=== PATIENT | male | born 1960 | race Two or more races ===

== ENCOUNTER 2023-11-07 10:37 | Inpatient (IN) | payer OTHER ==
[~2023-11-07] VITALS: Ht 185.4 cm; Wt 98.4 kg
[2023-11-07 11:28] LABS: Basophils # (auto) 0 10 ^3/uL (0-0.2); Basophils % (auto) 0.6 % (0.0-2.0); Eosinophils # (auto) 0.2 10 ^3/uL (0-0.8); Eosinophils % (auto) 3.8 % (0.0-7.0); Hematocrit 40.4 % (41.0-53.0); Hemoglobin 13.8 g/dL (13.5-17.5); Lymphocytes # (auto) 1.7 10 ^3/uL (0.4-5.4); Lymphocytes % (auto) 28.7 % (10.0-50.0); Mean Corpuscular Hgb Conc. 34.1 g/dL (32.0-36.0); Monocytes # (auto) 0.5 10 ^3/uL (0-1.3); Monocytes % (auto) 8.1 % (0.0-12.0); Neutrophils # (auto) 3.5 10 ^3/uL (1.6-8.6); Neutrophils % (auto) 58.8 % (37.0-80.0); Red Blood Cells 4.44 10^6/uL (4.5-5.90); Red Cell Distribution Width 15.1 % (11.8-14.3)
[2023-11-07 11:43] LABS: INR 0.99 (0.9-1.15); Partial Thromboplastin Time 27.2 SEC (24.5-34.5); Prothrombin Time 10.5 sec (9.3-11.8)
[2023-11-07 11:47] LABS: Alanine Aminotransferase 19 U/L (7-40); Albumin 4.4 g/dL (3.2-4.8); Alkaline Phosphatase 58 U/L (46-116); Anion Gap 5 (5-15); Aspartate Aminotransferase 18 U/L (13-40); BUN/Creatinine Ratio 9.6 (10.0-20.0); Bilirubin, Total 1.7 mg/dL (0.2-1.0); Blood Urea Nitrogen 11 mg/dL (9-23); Calcium 9.2 mg/dL (8.7-10.4); Carbon Dioxide 29 mmol/L (20-30); Chloride 108 mmol/L (98-107); Glucose 87 mg/dL (74-106); Potassium 3.4 mmol/L (3.5-5.1); Sodium 142 mmol/L (136-145); Total Protein 7.3 g/dL (5.7-8.2)
[2023-11-07] MEDS: hydrALAZINE HCL 20 MG/ML VL IV ONE (12:29)
[2023-11-07 12:30] VITALS: PULSE 62; RESP 19; O2SAT 96
[2023-11-07] MEDS: PIPERACILLIN-TAZO 4.5GM 100 ML IV ONE (13:03)
[2023-11-07] MEDS: POTASSIUM CHL 20 Meq TABLET PO ONE (13:03)
[2023-11-07 13:08] LABS: Urine Bacteria None Seen /hpf (None Seen)
[2023-11-07 13:19] LABS: Urine Blood Negative /uL (Negative); Urine Clarity Clear (Clear); Urine Color Yellow (Yellow); Urine Mucus FEW (None Seen); Urine Protein, UAD TRACE (Negative); Urine Specific Gravity 1.023 (1.001-1.035); Urine Urobilinogen 2 mg/dL (Negative); Urine WBC 1 /hpf (0 - 3)
[2023-11-07] MEDS ORDERED: NITROGLYCERIN 0.4 MG SL TAB SL PRN (13:45)
[2023-11-07] MEDS ORDERED: SODIUM CHLORIDE 0.9% 1,000 ML IV SCH (14:45)
[2023-11-07] MEDS ORDERED: MORPHINE SULFATE INJ 2 MG/ml SYRG IV PRN (14:45)
[2023-11-07] MEDS: POTASSIUM EFFERVESENT TAB 25 MEQ PO ONE (14:45)
[2023-11-07] MEDS ORDERED: ASPirin 81 mg TAB PO ONE (15:00)
[2023-11-07 15:15] LABS: Magnesium 2.1 mg/dL (1.6-2.6)
[2023-11-07 15:16] LABS: Phosphorus 2.5 mg/dL (2.4-5.1)
[2023-11-07] MEDS: LOSARTAN POTASSIUM 25 MG TAB PO ONE (16:10)
[2023-11-07] MEDS: hydroCHLOROthiazide 25 MG TAB PO ONE (16:10)
[2023-11-07] MEDS: DOCUSATE SOD 100 MG CAP PO PRN (16:11)
[2023-11-07] MEDS: ONDANSETRON HCL 4 MG/2 ML VIAL IV PRN (16:11)
[2023-11-07] MEDS: PANTOPRAZOLE 40 MG/10 ML VIAL INJ IV ONE (16:27)
[2023-11-07] MEDS: PIPERACILLIN-TAZOB 3.375GM 100 ML IV ONE (17:19)
[2023-11-07] MEDS: PIPERACILLIN-TAZOB 3.375GM 100 ML IV SCH (18:38)
[2023-11-07 19:20] VITALS: PULSE 60; RESP 18; O2SAT 99
[2023-11-07] MEDS: SODIUM CHLORIDE 0.9% 1,000 ML IV SCH (20:25)
[2023-11-07 22:19] LABS: Hematocrit 41.2 % (41.0-53.0); Hemoglobin 14.1 g/dL (13.5-17.5)
[2023-11-07 23:30] VITALS: PULSE 60
[2023-11-08] VITALS (9 sets, daily range): BP systolic 142–165; BP diastolic 92–103; PULSE 60–91; RESP 16–18; TEMP 98–98.7; O2SAT 94–99
[2023-11-08] MEDS: MORPHINE SULFATE INJ 2 MG/ml SYRG IV PRN (00:31)
[2023-11-08] MEDS ORDERED: LOSA-534 PO (01:50)
[2023-11-08] MEDS ORDERED: ATOR-47 PO (01:51)
[2023-11-08 06:56] LABS: Basophils # (auto) 0 10 ^3/uL (0-0.2); Basophils % (auto) 0.7 % (0.0-2.0); Eosinophils # (auto) 0.3 10 ^3/uL (0-0.8); Eosinophils % (auto) 4.2 % (0.0-7.0); Hematocrit 40.4 % (41.0-53.0); Hemoglobin 13.8 g/dL (13.5-17.5); Lymphocytes # (auto) 2.3 10 ^3/uL (0.4-5.4); Lymphocytes % (auto) 32.4 % (10.0-50.0); Mean Corpuscular Hemoglobin 30.9 pg (28.0-32.0); Mean Corpuscular Hgb Conc. 34.2 g/dL (32.0-36.0); Mean Corpuscular Volume 90.4 fL (80.0-100.0); Monocytes # (auto) 0.5 10 ^3/uL (0-1.3); Monocytes % (auto) 7.1 % (0.0-12.0); Neutrophils # (auto) 3.9 10 ^3/uL (1.6-8.6); Neutrophils % (auto) 55.6 % (37.0-80.0); Nucleated Red Blood Cells % 0.1 %; Red Blood Cells 4.47 10^6/uL (4.5-5.90); Red Cell Distribution Width 15.4 % (11.8-14.3)
[2023-11-08 07:28] LABS: Alanine Aminotransferase 15 U/L (7-40); Alkaline Phosphatase 58 U/L (46-116); Anion Gap 9 (5-15); BUN/Creatinine Ratio 6.4 (10.0-20.0); Blood Urea Nitrogen 7 mg/dL (9-23); Calcium 9.5 mg/dL (8.7-10.4); Carbon Dioxide 26 mmol/L (20-30); Chloride 107 mmol/L (98-107); Glucose 71 mg/dL (74-106); Sodium 142 mmol/L (136-145)
[2023-11-08 07:29] LABS: Albumin 4.4 g/dL (3.2-4.8); Aspartate Aminotransferase 10 U/L (13-40); Bilirubin, Total 2.4 mg/dL (0.2-1.0); Total Protein 7.3 g/dL (5.7-8.2)
[2023-11-08 08:44] LABS: Hepatitis B Surface Antigen Negative (Negative)
[2023-11-08 09:06] LABS: Hepatitis C Antibody Negative (Negative)
[2023-11-08] MEDS: PANTOPRAZOLE 40 MG/10 ML VIAL INJ IV SCH (09:53)
[2023-11-08] MEDS: POTASSIUM CHL 20 Meq TABLET PO ONE (09:54)
[2023-11-08] MEDS ORDERED: LOSARTAN POTASSIUM 25 MG TAB PO SCH (10:00)
[2023-11-08] MEDS ORDERED: ASPirin 81 mg TAB PO SCH (10:00)
[2023-11-08 11:41] LABS: Hematocrit 41.6 % (41.0-53.0); Hemoglobin 14.3 g/dL (13.5-17.5)
[2023-11-08] MEDS: PIPERACILLIN-TAZOB 3.375GM 100 ML IV SCH (17:19)
[2023-11-08] MEDS: hydrALAZINE HCL 20 MG/ML VL IV PRN (17:19)
[2023-11-08] MEDS ORDERED: HYDROCORTISONE 2.5% TOPICAL CREAM 30GM TUBE PR PRN (18:00)
[2023-11-08] MEDS ORDERED: LIDOCAINE HCL 5 % TOP OINT 35 GM TOP PRN (18:00)
[2023-11-08] MEDS: DOCUSATE SOD 100 MG CAP PO SCH (21:27)
[2023-11-08 22:15] LABS: Hematocrit 41.3 % (41.0-53.0); Hemoglobin 14.1 g/dL (13.5-17.5)
[2023-11-09 01:00] VITALS: BP 156/84; PULSE 80; RESP 18; TEMP 98; O2SAT 96
[2023-11-09 05:00] VITALS: BP 130/74; PULSE 67; RESP 18; TEMP 97.8; O2SAT 98
[2023-11-09 06:15] LABS: Basophils # (auto) 0 10 ^3/uL (0-0.2); Basophils % (auto) 0.5 % (0.0-2.0); Eosinophils # (auto) 0.2 10 ^3/uL (0-0.8); Eosinophils % (auto) 2.7 % (0.0-7.0); Hematocrit 39.3 % (41.0-53.0); Hemoglobin 13.4 g/dL (13.5-17.5); Lymphocytes # (auto) 1.5 10 ^3/uL (0.4-5.4); Lymphocytes % (auto) 16.4 % (10.0-50.0); Mean Corpuscular Hemoglobin 31.2 pg (28.0-32.0); Mean Corpuscular Hgb Conc. 34.2 g/dL (32.0-36.0); Mean Corpuscular Volume 91.1 fL (80.0-100.0); Monocytes # (auto) 0.7 10 ^3/uL (0-1.3); Monocytes % (auto) 7.1 % (0.0-12.0); Neutrophils # (auto) 6.8 10 ^3/uL (1.6-8.6); Neutrophils % (auto) 73.3 % (37.0-80.0); Nucleated Red Blood Cells % 0.1 %; Red Blood Cells 4.31 10^6/uL (4.5-5.90); Red Cell Distribution Width 15.8 % (11.8-14.3); White Blood Cell 9.3 10^3/uL (4.4-10.8)
[2023-11-09 06:33] LABS: Alanine Aminotransferase 15 U/L (7-40); Albumin 3.9 g/dL (3.2-4.8); Alkaline Phosphatase 51 U/L (46-116); Anion Gap 8 (5-15); Aspartate Aminotransferase 8 U/L (13-40); BUN/Creatinine Ratio 4.3 (10.0-20.0); Blood Urea Nitrogen 5 mg/dL (9-23); Calcium 9.1 mg/dL (8.7-10.4); Carbon Dioxide 25 mmol/L (20-30); Chloride 109 mmol/L (98-107); Glucose 152 mg/dL (74-106); Potassium 3.2 mmol/L (3.5-5.1); Sodium 142 mmol/L (136-145)
[2023-11-09 06:34] LABS: Bilirubin, Total 2.5 mg/dL (0.2-1.0); Total Protein 6.7 g/dL (5.7-8.2)
[2023-11-09 08:00] VITALS: PULSE 77
[2023-11-09 08:44] VITALS: BP 165/92; PULSE 70; RESP 18; TEMP 98.1; O2SAT 96
[2023-11-09] MEDS: LOSARTAN POTASSIUM 50 MG TAB PO SCH (08:47)
[2023-11-09] MEDS: hydroCHLOROthiazide 25 MG TAB PO SCH (08:48)
[2023-11-09] MEDS: POTASSIUM CHL 20 Meq TABLET PO ONE ×2 (08:49→14:38)
[2023-11-09] MEDS ORDERED: HYDR25TA5 PO (12:11)
[2023-11-09] MEDS ORDERED: LOSA-534 PO (12:11)
[2023-11-09] MEDS ORDERED: CIPR-173 PO (12:12)
[2023-11-09] MEDS ORDERED: METR-344 PO (12:12)
[2023-11-09 13:14] VITALS: BP 134/85; PULSE 74; RESP 16; TEMP 98.3; O2SAT 100
[2023-11-10] MEDS ORDERED: LOSARTAN POTASSIUM 50 MG TAB PO SCH (10:00)
== END 2023-11-09 16:23 | disposition home or self-care (01) | DRG 78 ==
LOC: ER 10:37 → TELE-WESTW 13:34 → TELE 13:34 → TELE-WESTW 23:17 → WEST WING 11-09 07:53
PROVIDERS: ADMIT Internal Medicine Geriatric Medicine; ATTEND Emergency Medicine
DX: I67.4 Hypertensive encephalopathy (principal); I16.1 Hypertensive emergency; K64.8 Other hemorrhoids; K52.9 Noninfective gastroenteritis and colitis, unspecified; K64.4 Residual hemorrhoidal skin tags; K57.30 Diverticulosis of large intestine without perforation or abscess without bleeding; E87.6 Hypokalemia; E80.6 Other disorders of bilirubin metabolism; M06.9 Rheumatoid arthritis, unspecified; E78.5 Hyperlipidemia, unspecified; K76.89 Other specified diseases of liver; I10 Essential (primary) hypertension; Z85.46 Personal history of malignant neoplasm of prostate; Z87.19 Personal history of other diseases of the digestive system; Z80.0 Family history of malignant neoplasm of digestive organs; Z93.3 Colostomy status
CPT/HCPCS: 36415; 70450; 71045; 74176; 80053; 81001; 83735; 83880; 84100; 84484; 85014; 85018; 85025; 85610; 85730; 86803; 87340; 93005; 93306; 96365; 96366; 96375; G0378; J2405; J2470; J2543